=== PATIENT | female | born 1970 | race Asian ===

== ENCOUNTER → 2021-07-26 | Outpatient (CLI) | payer BC ==
--- NOTE | 2021-07-26 14:35 | US ---
EXAMINATION TYPE: US pelvic complete DATE OF EXAM: 07/26/2021 COMPARISON: NONE CLINICAL HISTORY: N93.8 Dysfunctional uterine bleeding. DUB, right pelvic pain, 3, para 3, hi story of tubal ligation TECHNIQUE: . Transabdominal sonographic images of the pelvis were acquired. Date of LMP: 07/14/2021 EXAM MEASUREMENTS: Uterus: 8.4 x 3.9 x 5.3 cm Endometrial Stripe: 0.9 cm Right Ovary: 2.5 x 1.6 x 1.4 cm Left Ovary: 4.1 x 2.0 x 2.1 cm 1. Uterus: anteverted 2. Endometrium: wnl 3. Right Ovary: wnl 4. Left Ovary: 1.9cm cystic appears simple 5. Bilateral Adnexa: wnl 6. Posterior cul-de-sac: wnl IMPRESSION: 1. Left ovarian cyst.
== END ==
LOC: RADUSWWP 14:00
PROVIDERS: ATTEND Obstetrics & Gynecology
DX: N83.202 Unspecified ovarian cyst, left side (principal)
CPT/HCPCS: 76856

== ENCOUNTER → 2021-10-14 | Outpatient (CLI) | payer SELFPAY ==
--- NOTE | 2021-10-14 14:50 | MM ---
Reason for exam: additional evaluation requested from prior study. Last mammogram was performed 1 year and 2 months ago. History: Ultrasound-guided core biopsy of the left breast, 2012. Physical Findings: A clinical breast exam by your physician is recommended on an annual basis and results should be correlated with mammographic findings. MG 3D Diag Mammo W/Cad MELISSA Bilateral CC, MLO, and LM view(s) were taken. Prior study comparison: August 03, 2020, mammogram, performed at [facility]. June 24, 2020, mammogram, performed at [facility]. April 26, 2019, mammogram, performed at [facility]. The breast tissue is extremely dense which could obscure a lesion on mammography. Finding #1: There is a new 13 x 8 mm obscured oval mass in the outer quadrant, posterior position of the right breast. Finding #2: There are round calcifications in both breasts. Previous mammotome biopsy in the left breast. There is a chronic nodularity in the left breast, increased in size. ASSESSMENT: Incomplete: need additional imaging evaluation, BI-RAD 0 RECOMMENDATION: Ultrasound of both breasts.
--- NOTE | 2021-10-14 14:56 | USB ---
Reason for exam: additional evaluation requested from abnormal screening. History: Ultrasound-guided core biopsy of the left breast, 2012. Physical Findings: A clinical breast exam by your physician is recommended on an annual basis and results should be correlated with mammographic findings. US Breast Limited BILAT Right limited breast ultrasound including focal area of concern, retroareolar and axilla demonstrates a 0.6 x 0.4 x 0.3cm round lesion at 8 o'clock thin walled cyst with thin septate and a 1.2 x 1.0 x 1.6cm round lesion at 9 o'clock. Left complete breast ultrasound includes all four quadrants, the retroareolar region and axilla. Finding demonstrates a 0.8 x 0.7 x 0.6cm round, lobular lesion at 12 o'clock internal echoes suspect debris filled cyst, a 2.5 x 1.2 x 2.2cm benign thin walled cyst at 5 o'clock, a 1.6 x 1.5 x 1.4cm benign thin walled cyst at 5 o'clock and a 2.4 x 1.2 x 2.4cm benign thin walled cyst at 10 o'clock. ASSESSMENT: Probably benign, BI-RAD 3 RECOMMENDATION: Ultrasound of the left breast in 6 months. Manage patient on a clinical basis. Lesions can be aspirated by ultrasound guidance to relieve pain if desired.
== END | disposition home or self-care (01) ==
LOC: RADMAMWWP 08:48
PROVIDERS: ATTEND Obstetrics & Gynecology
DX: N63.0 Unspecified lump in unspecified breast (principal)
CPT/HCPCS: 77062; 77066

== ENCOUNTER → 2021-11-02 | Day surgery (SDC) | payer OTHER ==
[2021-11-02 07:26] VITALS: RESP 16; TEMP 98.1
[2021-11-02 08:33] VITALS: BP 104/70; PULSE 69
--- NOTE | 2021-11-02 17:06 | MM ---
EXAMINATION TYPE: US breast aspiration single LT DATE OF EXAM: 11/02/2021 CLINICAL HISTORY: N63, Breast lump. TECHNIQUE: Ultrasound guided vaccuum assisted core biopsy of left breast, 2 locations. COMPARISON: NONE FINDINGS: The ultrasound guided core biopsy procedure was explained to the patient. The risks, benef its, alternatives were discussed. An informed consent was then obtained. Timeout was performed. The patient was placed in supine positioning for imaging and for the procedure. The overlying skin w as prepped with the exiting and sterilely draped in usual sterile fashion. Lidocaine 1% was used as anesthetic into the skin and deeper breast tissue up to area of concern in the breast. Under ultrasound guidance, an 18-gauge vacuum assisted cyst aspiration device was used to obtain bloo dy fluid samples. There is easy collapse of what appeared to be a Adjacent cysts at 5:00. There is easy collapse of the 10:00 aspiration. A biopsy clip was left at eac h lesion. A wing clip was placed at the 5:00 cyst aspiration. A coil clip was placed at the 10:[address] aspiration position. Good hemostasis was obtained with direct pressure. Discharge instructions were discussed with the jason melissa. The patient will follow up with the referring physician for results. Postprocedure mammogram: The patient was transferred to mammography for physician ordered post proced ure mammogram for clip placement verification. The clip is in the expected region of the biopsies. The patient tolerated the procedure well without any immediate complication. The patient was dischar ged to home in stable condition. IMPRESSION: 1. Successful ultrasound guided cyst aspiration left breast 2 locations. Recommendations: 1. Recommendations are pending pathology results.
--- NOTE | 2021-11-02 17:07 | USB ---
EXAMINATION TYPE: US breast aspiration single LT DATE OF EXAM: 11/02/2021 CLINICAL HISTORY: N63, Breast lump. TECHNIQUE: Ultrasound guided vaccuum assisted core biopsy of left breast, 2 locations. COMPARISON: NONE FINDINGS: The ultrasound guided core biopsy procedure was explained to the patient. The risks, benefits, alternatives were discussed. An informed consent was then obtained. Timeout was performed. The patient was placed in supine positioning for imaging and for the procedure. The overlying skin was prepped with the exiting and sterilely draped in usual sterile fashion. Lidocaine 1% was used as anesthetic into the skin and deeper breast tissue up to area of concern in the breast. Under ultrasound guidance, an 18-gauge vacuum assisted cyst aspiration device was used to obtain bloody fluid samples. There is easy collapse of what appeared to be a Adjacent cysts at 5:00. There is easy collapse of the 10:00 aspiration. A biopsy clip was left at each lesion. A wing clip was placed at the 5:00 cyst aspiration. A coil clip was placed at the 10:00 cyst aspiration position. Good hemostasis was obtained with direct pressure. Discharge instructions were discussed with the patient. The patient will follow up with the referring physician for results. Postprocedure mammogram: The patient was transferred to mammography for physician ordered post procedure mammogram for clip placement verification. The clip is in the expected region of the biopsy. The patient tolerated the procedure well without any immediate complication. The patient was discharged to home in stable condition. IMPRESSION: 1. Successful ultrasound guided cyst aspiration left breast 2 locations. Recommendations: 1. Recommendations are pending pathology results. Pathology Results: Benign A. LEFT BREAST, 5:00, FINE NEEDLE ASPIRATE: Foamy histiocytes and rare bland apocrine cells in a background of blood consistent with benign cyst contents. B. LEFT BREAST, 10:00, FINE NEEDLE ASPIRATE: Rare clusters of bland apocrine lining cells in a background of degenerated cellular material consistent with benign apocrine cyst/cyst contents. Recommendation Follow up ultrasound of the left breast in 6 months. JOSE
== END ==
LOC: RADUSWWP 07:01
PROVIDERS: ATTEND Surgery
DX: N60.02 Solitary cyst of left breast (principal)
CPT/HCPCS: 88108; 88305; 77065; 76942; 19000; 19001; A4648; J2001

== ENCOUNTER → 2021-11-10 | Outpatient (CLI) | payer OTHER ==
[2021-11-10 14:58] VITALS: BP 118/72; PULSE 77; RESP 17; TEMP 97.9
--- NOTE | 2021-11-10 15:22 | P.PN ---
Subjective Progress Note Date: 11/10/21 Principal diagnosis: fibrocystic breast changes Siomara is atatus post a left breast ultrasound guided core biopsy of two sites in the left breast. Both were benign. Since her last visit she has developed a cystic area in the right breast at the 7 o'clock position. She t olerated the aspiration without difficulty however she did develop some ecchymosis in the left breast in the upper inner quadrant area. Objective - Vital Signs Vital signs: Vital Signs Temp 97.9 F 11/10/21 14:48 Pulse 77 11/10/21 14:48 Resp 17 11/10/21 14:48 BP 118/72 11/10/21 14:48 Pulse Ox 100 11/10/21 14:48 Intake & Output 11/09/21 11/10/21 11/10/21 18:59 06:59 18:59 Weight 51.256 kg - Constitutional General appearance: Present: cooperative - EENT Eyes: Present: EOMI ENT: Present: hearing grossly normal - Neck Neck: Present: normal ROM - Respiratory Respiratory: bilateral: CTA - Cardiovascular Rhythm: regular - Integumentary Integumentary: Present: normal turgor - Musculoskeletal Musculoskeletal: Present: gait normal - Psychiatric Psychiatric: Present: A&O x's 3, appropriate affect, intact judgment & insight - Additional findings Additional findings: Breast Exam: BRA: 34A Inspection: Bilateral grade 2 ptosis, mild ecchymosis left breast upper inner quadrant Palpation: Right breast: Patient on today's exam has some increased nodularity at the 7 o'clock position approximately 1 cm in size Right axilla: No adenopathy of concern Left breast: Post core biopsy changes with mild hematoma upper inner quadrant, no evidence of recurrent cyst in the lower outer quadrant Left axilla: No adenopathy of concern Assessment and Plan Assessment: Impression: Symptomatic fibrocystic breast changes Right breast nodular area Plan: Attempt at cyst aspiration If this is unsuccessful ultrasound of this area Follow-up in 3 weeks to follow the left breast hematoma upper inner quadrant after ultrasound-guided core biopsy CC: Dr. Adames
== END | disposition home or self-care (01) ==
LOC: WWCWWP 14:39
PROVIDERS: ATTEND Surgery
DX: Z53.9 Procedure and treatment not carried out, unspecified reason (principal)

== ENCOUNTER → 2021-11-10 | Outpatient (CLI) | payer OTHER ==
--- NOTE | 2021-11-11 08:17 | USB ---
Reason for exam: clinical finding. History: Benign US breast aspiration ea add LT of the left breast, November 02, 2021. Benign US breast aspiration single LT of the left breast, November 02, 2021. Ultrasound-guided core biopsy of the left breast, 2012. Physical Findings: A clinical breast exam by your physician is recommended on an annual basis and results should be correlated with mammographic findings. US Breast Limited RT Right limited breast ultrasound including focal area of concern, retroareolar and axilla demonstrates a 1.4 x 1.5 x 0.7cm mixed lesion at 8 o'clock, 4cm from nipple. Results were given to the patient verbally at the time of the exam. ASSESSMENT: Probably benign, BI-RAD 3 RECOMMENDATION: Ultrasound of the right breast in 3 months. (3-6 months)
== END | disposition home or self-care (01) ==
LOC: RADUSWWP 15:25
PROVIDERS: ATTEND Surgery
DX: N63.0 Unspecified lump in unspecified breast (principal)

== ENCOUNTER → 2022-02-14 | Outpatient (CLI) | payer OTHER ==
--- NOTE | 2022-02-14 15:02 | USB ---
Reason for Exam: Clinical finding. Patient History: Menarche at age 11. First Full-Term at age 21. 2013, Ultrasound-Guided Core Biopsy on the Left side. 11/02/2021, Benign Cyst Aspiration on the left side. 11/02/2021, Benign Cyst Aspiration on the left side. Risk Values: Roselyn 5 year model risk: 1.2%. NCI Lifetime model risk: 9.0%. Prior Study Comparison: 08/03/2020 Screening Mammogram, [facility]. 10/14/2021 Bilateral Diagnostic Mammogram, [facility]. 11/02/2021 Left Diagnostic Mammogram, [facility]. Findings: The whole breast of the right breast, the axilla of the right breast and the retroareolar of the right breast were scanned. The 1.5 cm lesion at 8:00 position is no longer seen. There are numerous subcentimeter anechoic nodules with through transmission compatible with simple cysts.. Overall Assessment: Benign, BI-RAD 2 Management: Screening Mammogram of both breasts in 6 months. A clinical breast exam by your physician is recommended on an annual basis and results should be correlated with mammographic findings. Electronically signed and approved by: Jonathon Alcantara M.D. Radiologis
== END | disposition home or self-care (01) ==
LOC: RADUSWWP 14:27
PROVIDERS: ATTEND Surgery
DX: N60.01 Solitary cyst of right breast (principal)

== ENCOUNTER → 2022-02-17 | Outpatient (CLI) | payer OTHER ==
[2022-02-17 15:47] VITALS: BP 119/76; PULSE 80; RESP 17; TEMP 98.3
--- NOTE | 2022-02-17 16:26 | P.PN ---
Progress Note - Text Progress Note Date: 02/17/22 Siomara is a 51-year-old [place] female with a history of fibrocystic breast changes. She had a recent right breast ultrasound to evaluate cystic disease. She had an ultrasound performed on there were some subcentimeter nodules with through transmission compatible with simple cyst but no lesions of concern. Recommendation is for screening mammogram of both breasts in 6 months. We have talked about the fact that the patient is taking primrose oil and this seems to be helping. We've also talked about the fact that the patient does drink caffeine and that abstain from caffeine may help decrease the formation of breast cyst or fibrocystic disease. She is going to consider this. At this time physical exam was not done as it was most recently done in October. If she notes any questions or concerns she will call us sooner. Otherwise the patient will be seen again in 6 months with bilateral mammogram. Cc: Dr. Fraga
== END | disposition home or self-care (01) ==
LOC: WWCWWP 14:54
PROVIDERS: ATTEND Surgery
DX: Z53.9 Procedure and treatment not carried out, unspecified reason (principal)

== ENCOUNTER → 2022-08-14 | Outpatient (CLI) | payer OTHER ==
--- NOTE | 2022-08-15 20:51 | MM ---
Reason for Exam: Screening (asymptomatic). Last screening mammogram was performed 10 month(s) ago. Patient History: Menarche at age 11. First Full-Term at age 21. Patient has history of breast feeding. 2012, Ultrasound-Guided Core Biopsy on the Left side. 11/02/2021, Benign Cyst Aspiration on the left side. 11/02/2021, Benign Cyst Aspiration on the left side. Risk Values: Roselyn 5 year model risk: 1.2%. NCI Lifetime model risk: 8.8%. Prior Study Comparison: 08/03/2020 Screening Mammogram, [facility]. 10/14/2021 Bilateral Diagnostic Mammogram, [facility]. 11/02/2021 Left Diagnostic Mammogram, [facility]. Tissue Density: The breast tissue is extremely dense which could obscure a lesion on mammography. Findings: Analyzed By CAD. 2 microclips left breast from prior biopsies. There is underlying nodularity in the left breast, partially obscured and partially circumscribed. These areas of nodularity appear to be increasing and further ultrasound evaluation is recommended. Overall Assessment: Incomplete: need additional imaging evaluation, BI-RAD 0 Management: Diagnostic Breast Ultrasound of the left breast. Entire breast for multiple areas of increasing nodularity. [facility] will attempt to contact patient to return for supplemental views and ultrasound if indicated. Electronically signed and approved by: Bartolome Leyva M.D. Radiologist
== END | disposition home or self-care (01) ==
LOC: RADMAMWWP 14:51
PROVIDERS: ATTEND Surgery
DX: Z12.31 Encounter for screening mammogram for malignant neoplasm of breast (principal)
CPT/HCPCS: 77063; 77067

== ENCOUNTER → 2022-08-21 | Outpatient (CLI) | payer BC, OTHER ==
--- NOTE | 2022-08-21 15:33 | USB ---
Patient History: Menarche at age 11. First Full-Term at age 21. Patient has history of breast feeding. 2012, Ultrasound-Guided Core Biopsy on the Left side. 11/02/2021, Benign Cyst Aspiration on the left side. 11/02/2021, Benign Cyst Aspiration on the left side. Risk Values: Roselyn 5 year model risk: 1.2%. NCI Lifetime model risk: 8.8%. Technique: Method: Whole Breast Handheld. Prior Study Comparison: 10/14/2021 Bilateral Diagnostic Mammogram, [facility]. 11/02/2021 Left Diagnostic Mammogram, [facility]. 08/14/2022 Bilateral MG 3D screening mammo w/cad, [facility]. Findings: The whole breast of the left breast, the axilla of the left breast and the retroareolar of the left breast were scanned. Complete ultrasound of the left breast was performed with additional evaluation of the nipple and axilla tail. Multiple simple cysts are demonstrated throughout the left breast examples including a 1.8 x 0.8 x 2.0 cm cyst at 8:00 2 cm from the nipple and in adjacent 1.2 x 1.3 x 0.8 cm cyst at 9:00 2 cm from the nipple. Additional cyst at 11:00 2 cm cyst in the nipple measuring 1.4 x 0.8 x 1.5 cm and another one at 11:00 2 cm from the nipple measuring 2.2 x 0.6 x 1.5 cm. Overall Assessment: Benign, BI-RAD 2 Management: Screening Mammogram of both breasts in 1 year. These can be aspirated with ultrasound guidance to relieve pain if desired. A clinical breast exam by your physician is recommended on an annual basis and results should be correlated with mammographic findings. This exam should not preclude additional follow-up of suspicious palpable abnormalities. Results were given to the patient verbally at the time of exam. Electronically signed and approved by: Ned Muir D.O.
== END | disposition home or self-care (01) ==
LOC: RADUSWWP 14:27
PROVIDERS: ATTEND Surgery
DX: R92.8 Other abnormal and inconclusive findings on diagnostic imaging of breast (principal)

== ENCOUNTER → 2022-08-25 | Outpatient (CLI) | payer BC, OTHER ==
[2022-08-25 15:42] VITALS: BP 121/66; PULSE 88; RESP 16; TEMP 97.6
--- NOTE | 2022-08-25 16:01 | P.PN ---
Subjective Progress Note Date: 08/25/22 Siomara is a 52-year-old female with a complaint of mastodynia and cystic breast changes. She most recently had a bilateral mammogram performed on 120 323. This was BIRADS 0 diagnostic ultrasound of the left [place]. [place] [address]. Multiple simple cysts were demonstrated throughout the breast including a 1.8 x 2 cm cyst at the 8 o'clock position in the left breast. Additionally there was a 2.2 x 1.5 cm cyst at the 11 o'clock position. This appeared to be simple cyst in the overall assessment was benign repeat mammogram and 1 year. She has had breast cyst aspirated in the past. She has not had any other breast surgery. There is no history of any trauma or infection in the breast. She is still having her periods, and her breast get more tender prior to them. She has been taking primrose oil which has been helping. Not complaining of any new discrete lumps masses or nodules of concern in either breast. Caffiene: 1 cup/day nicotine: none chocolate: several times a week BCP: ESURE procedure in 2016; tubes tied used many years ago Family History: mother: lumps in her breast no cancer Hormonal History: menarche: 10 , breast fed: yes, age at first : 21 Perimenopausal at this time Control pills many years ago for a very short period of time Has never used hormones Surgical History: none Medcial History: none Social HIstory: nicotine: none alcohol: occasional drugs:none - Constitutional Comment: hot flashes - EENT Eyes: denies blurred vision, denies pain Ears: deny: decreased hearing, tinnitus Ears, nose, mouth and throat: Denies headache, Denies sore throat - Breasts Breasts: bilateral: as per HPI - Cardiovascular Cardiovascular: Denies chest pain, Denies shortness of breath - Respiratory Respiratory: Denies cough, Denies 7 - Gastrointestinal Gastrointestinal: Denies abdominal pain, Denies diarrhea, Denies nausea, Denies vomiting - Genitourinary (Female) Genitourinary: Denies dysuria, Denies hematuria - Menstruation Menstruation: Reports cycle variable - Musculoskeletal Musculoskeletal: Denies myalgias - Integumentary Integumentary: Denies pruritus, Denies rash - Neurological Neurological: Denies numbness, Denies weakness - Psychiatric Psychiatric: Denies anxiety, Denies depression - Endocrine Endocrine: Denies fatigue, Denies weight change - Hematologic/Lymphatic Comment: none - Allergic/Immunologic Allergic/Immunologic: Reports as per HPI Medications and Allergies Allergies Allergy/AdvReac Type Severity Reaction Status Date / Time No Known Allergies Allergy Verified 10/27/21 12:55 Objective - Vital Signs Vital signs: Vital Signs Temp 97.6 F 08/25/22 15:41 Pulse 88 08/25/22 15:41 Resp 16 08/25/22 15:41 BP 121/66 08/25/22 15:41 Pulse Ox 100 08/25/22 15:41 FiO2 Intake & Output 08/24/22 08/25/22 08/25/22 18:59 06:59 18:59 Weight 51.256 kg - Constitutional General appearance: Present: cooperative - EENT Eyes: Present: edentulous ENT: Present: hearing grossly normal - Neck Neck: Present: normal ROM - Respiratory Respiratory: bilateral: CTA - Cardiovascular Rhythm: regular Heart sounds: normal: S1, S2 - Gastrointestinal General gastrointestinal: Present: soft - Integumentary Integumentary: Present: normal turgor - Musculoskeletal Musculoskeletal: Present: gait normal - Psychiatric Psychiatric: Present: A&O x's 3, appropriate affect, intact judgment & insight - Additional findings Additional findings: Breast Exam: BRA: 34A inspection: bilateral grade 2 ptosis, well healed scar left breast palpation: right breast: multipositional exam right breast fibrocystic changes Right axilla: No adenopathy of concern Left breast: Multi-positional exam fibrocystic changes Left axilla: No adenopathy of concern Assessment and Plan Assessment: Impression: Impression: Bilateral breast cyst Fibrocystic breast changes Mastodynia improved on [place] oil Plan: Patient will continue present regimen of [place] oil Recommended to avoid caffeine Repeat bilateral mammogram in 1 year with appointment Patient to follow up sooner any questions or concerns Dr. Fraga
== END ==
LOC: WWCWWP 15:35
PROVIDERS: ATTEND Surgery
DX: N60.11 Diffuse cystic mastopathy of right breast (principal); N60.12 Diffuse cystic mastopathy of left breast; N64.4 Mastodynia

== ENCOUNTER → 2023-08-09 | Outpatient (CLI) | payer BC ==
--- NOTE | 2023-08-09 11:14 | P.PN ---
Subjective Progress Note Date: 08/09/23 08/25/22 Siomara is a 52-year-old female with a complaint of mastodynia and cystic breast changes. She most recently had a bilateral mammogram performed on . This was BIRADS 0 diagnostic ultrasound of the left breast was recommended. This was performed on . Multiple simple cysts were demonstrated throughout the breast including a 1.8 x 2 cm cyst at the 8 o'clock position in the left breast. Additionally there was a 2.2 x 1.5 cm cyst at the 11 o'clock position. This appeared to be simple cyst in the overall assessment was benign repeat mammogram and 1 year. She has had breast cyst aspirated in the past. She has not had any other breast surgery. There is no history of any trauma or infection in the breast. She is still having her periods, and her breast get more tender prior to them. She has been taking primrose oil which has been helping. Not complaining of any new discrete lumps masses or nodules of concern in either breast. She is complaining of bilateral breast pain over the holidays. She states that she was eating increased chocolate and caffeinated beverages. Additionally she stopped using her primrose oil. Since that time she has stopped eating the chocolate started the primrose oil again and is using Motrin. She has decreased discomfort but it is still greater than prior and she has some palpable nodules in her left breast. Her last menstrual period was approximately October of last year, however today she noticed some abdominal cramping and blood with urination, if this the tenderness in her breast has resolved. Caffiene: 1 cup/day nicotine: none chocolate: several times a week BCP: ESURE procedure in 2016; tubes tied used many years ago Family History: mother: lumps in her breast no cancer Hormonal History: menarche: 10 , breast fed: yes, age at first : 21 Perimenopausal at this time Control pills many years ago for a very short period of time Has never used hormones Surgical History: none Medcial History: none Social HIstory: nicotine: none alcohol: occasional drugs:none - Constitutional Comment: hot flashes - EENT Eyes: denies blurred vision, denies pain Ears: deny: decreased hearing, tinnitus Ears, nose, mouth and throat: Denies headache, Denies sore throat - Breasts Breasts: bilateral: as per HPI - Cardiovascular Cardiovascular: Denies chest pain, Denies shortness of breath - Respiratory Respiratory: Denies cough, Denies 7 - Gastrointestinal Gastrointestinal: Denies abdominal pain, Denies diarrhea, Denies nausea, Denies vomiting - Genitourinary (Female) Genitourinary: Denies dysuria, Denies hematuria - Menstruation Menstruation: Reports cycle variable - Musculoskeletal Musculoskeletal: Denies myalgias - Integumentary Integumentary: Denies pruritus, Denies rash - Neurological Neurological: Denies numbness, Denies weakness - Psychiatric Psychiatric: Denies anxiety, Denies depression - Endocrine Endocrine: Denies fatigue, Denies weight change - Hematologic/Lymphatic Comment: none - Allergic/Immunologic Allergic/Immunologic: Reports as per HPI Medications and Allergies Allergies Allergy/AdvReac Type Severity Reaction Status Date / Time No Known Allergies Allergy Verified 10/27/21 12:55 Objective - Constitutional General appearance: Present: cooperative - EENT Eyes: Present: EOMI ENT: Present: hearing grossly normal - Neck Neck: Present: normal ROM - Respiratory Respiratory: bilateral: CTA - Cardiovascular Heart sounds: normal: S1, S2 - Gastrointestinal General gastrointestinal: Present: soft - Integumentary Integumentary: Present: normal turgor - Musculoskeletal Musculoskeletal: Present: gait normal - Psychiatric Psychiatric: Present: A&O x's 3, appropriate affect, intact judgment & insight - Additional findings Additional findings: Breast Exam: BRA: 34A inspection: bilateral grade 2 ptosis, well healed scar left breast palpation: right breast: multipositional exam right breast fibrocystic changes, very dense breast tissue Right axilla: No adenopathy of concern Left breast: Multi-positional exam fibrocystic changes, very dense breast tissue questionably more dense at the 12 o'clock position Left axilla: No adenopathy of concern Assessment and Plan Assessment: Impression: Impression: Bilateral breast cyst Fibrocystic breast changes Mastodynia improved on Cornucopia oil Recent blood with urination/probable uterine bleeding Plan: Patient will continue present regimen of Cornucopia oil Recommended to avoid caffeine Repeat bilateral mammogram August 30 with appointment to follow this Ultrasound left breast Appointment with Dr. Fraga regarding menstrual cycle Dr. Fraga
== END ==
LOC: WWCWWP 10:23
PROVIDERS: ATTEND Surgery
DX: N60.02 Solitary cyst of left breast (principal); N60.01 Solitary cyst of right breast; N64.4 Mastodynia; N60.12 Diffuse cystic mastopathy of left breast

== ENCOUNTER → 2023-08-24 | Outpatient (CLI) | payer BC ==
--- NOTE | 2023-08-24 15:23 | MM ---
Reason for Exam: Clinical finding. Last mammogram was performed 1 year(s) and 1 month(s) ago. Patient History: Menarche at age 11. First Full-Term at age 21. Patient has history of breast feeding. 2012, Ultrasound-Guided Core Biopsy on the Left side. 11/02/2021, Benign Cyst Aspiration on the left side. 11/02/2021, Benign Cyst Aspiration on the left side. Risk Values: Roselyn 5 year model risk: 1.2%. NCI Lifetime model risk: 8.7%. Tissue Density: The breast tissue is heterogeneously dense. This may lower the sensitivity of mammography. Findings: Analyzed By CAD. Waxing and waning cysts are redemonstrated primarily within the left breast. Prior biopsy clips. No suspicious masses or calcifications. Overall Assessment: Benign, BI-RAD 2 Management: Screening Mammogram of both breasts in 1 year. . Results were given to the patient verbally at the time of exam. Patient should continue monthly self-breast exams. A clinical breast exam by your physician is recommended on an annual basis. This exam should not preclude additional follow-up of suspicious palpable abnormalities. Note on Roselyn scores and lifetime risk: 1. A Roselyn score greater than 3% is considered moderate risk. If this is the case, consider specialist referral to assess eligibility for a risk reducing agent. 2. If overall lifetime risk for the development of breast cancer is 20% or higher, the patient may qualify for future screening with alternating mammogram and breast MRI. Electronically signed and approved by: Ranjeet Sherman M.D. Radiologis
== END | disposition home or self-care (01) ==
LOC: RADMAMWWP 14:50
PROVIDERS: ATTEND Surgery
DX: N63.10 Unspecified lump in the right breast, unspecified quadrant (principal); N63.20 Unspecified lump in the left breast, unspecified quadrant; R92.333 Mammographic heterogeneous density, bilateral breasts
CPT/HCPCS: 77062; 77066

== ENCOUNTER → 2024-12-01 | Outpatient (CLI) | payer BC ==
--- NOTE | 2024-12-02 08:34 | MM ---
Reason for Exam: Screening (asymptomatic). Last mammogram was performed 1 year(s) and 3 month(s) ago. Patient History: Menarche at age 11. First Full-Term at age 21. Patient has history of breast feeding. 2012, Ultrasound-Guided Core Biopsy on the Left side. 11/02/2021, Benign Cyst Aspiration on the left side. 11/02/2021, Benign Cyst Aspiration on the left side. Risk Values: Roselyn 5 year model risk: 1.6%. NCI Lifetime model risk: 7.6%. Prior Study Comparison: 11/02/2021 Left Diagnostic Mammogram, [facility]. 08/14/2022 Bilateral MG 3D screening mammo w/cad, [facility]. 08/24/2023 Bilateral MG 3D diag mammo w/cad [facility], [facility]. Tissue Density: The breasts are heterogeneously dense, which may obscure small masses. Findings: Analyzed By CAD. There are 3 biopsy clips redemonstrated scattered throughout the left breast. There are scattered tiny benign-appearing round calcification bilaterally redemonstrated. There is no suspicious group of microcalcifications or new suspicious mass in either breast. Overall Assessment: Benign, BI-RAD 2 Management: Screening Mammogram of both breasts in 1 year. Some advise annual bilateral breast ultrasound surveillance in patients with background dense tissue. Patient should continue monthly self-breast exams. A clinical breast exam by your physician is recommended on an annual basis. This exam should not preclude additional follow-up of suspicious palpable abnormalities. Note on Roselyn scores and lifetime risk: 1. A Roselyn score greater than 3% is considered moderate risk. If this is the case, consider specialist referral to assess eligibility for a risk reducing agent. 2. If overall lifetime risk for the development of breast cancer is 20% or higher, the patient may qualify for future screening with alternating mammogram and breast MRI. [facility], , 12/02/2024 8:30 AM. Electronically signed and approved by: Daquan Thompson M.D.
== END | disposition home or self-care (01) ==
LOC: RADMAMWWP 15:49
PROVIDERS: ATTEND Surgery
DX: Z12.31 Encounter for screening mammogram for malignant neoplasm of breast (principal); R92.333 Mammographic heterogeneous density, bilateral breasts
CPT/HCPCS: 77063; 77067